=== PATIENT | female | born 1945 | race Caucasian/White ===

== ENCOUNTER 2020-05-04 11:24 | Emergency (ER) | payer MEDICARE, MEDICAID ==
[~2020-05-04] VITALS: Ht 134.6 cm; Wt 37.6 kg
[2020-05-04] MEDS ORDERED: MORPHINE SULF INJ 2 MG/ML SYRINGE 1ML IV ONE (11:45)
[2020-05-04] MEDS ORDERED: ONDANSETRON HCL 4 MG/2 ML VIAL IV ONE (11:45)
[2020-05-04 11:58] LABS: Basophils # (auto) 0 10 ^3/uL (0-0.2); Basophils % (auto) 0.4 % (0.0-2.0); Eosinophils # (auto) 0 10 ^3/uL (0-0.8); Eosinophils % (auto) 0.6 % (0.0-7.0); Hematocrit 40.7 % (36.0-46.0); Hemoglobin 13.4 g/dL (12.2-16.2); Lymphocytes # (auto) 0.5 10 ^3/uL (0.4-5.4); Lymphocytes % (auto) 7.9 % (10.0-50.0); Mean Corpuscular Hemoglobin 31.8 pg (28.0-32.0); Mean Corpuscular Volume 96.3 fL (80.0-100.0); Monocytes # (auto) 0.6 10 ^3/uL (0-1.3); Monocytes % (auto) 8.9 % (0.0-12.0); Neutrophils # (auto) 5.6 10 ^3/uL (1.6-8.6); Neutrophils % (auto) 82.2 % (37.0-80.0); Platelet Count (auto) 319 10^3/uL (140-450); Red Blood Cells 4.22 10^6/uL (4.0-5.20); Red Cell Distribution Width 14.9 % (11.8-14.3); White Blood Cell 6.8 10^3/uL (4.4-10.8)
[2020-05-04 12:28] LABS: Anion Gap 7 (5-15); Blood Urea Nitrogen 20 mg/dL (7-18); Calcium 8.6 mg/dL (8.5-10.1); Carbon Dioxide 23 mmol/L (21-32); Chloride 102 mmol/L (98-107); Glucose 108 mg/dL (74-106); Potassium 4.8 mmol/L (3.5-5.1); Sodium 132 mmol/L (136-145)
[2020-05-04 12:29] LABS: Alanine Aminotransferase 21 U/L (13-56); Aspartate Aminotransferase 18 U/L (15-37); BUN/Creatinine Ratio 40.8; GFR African American 160 mL/min; GFR Non-African American 132 mL/min; Lipase 236 U/L (73-393)
[2020-05-04 12:34] LABS: Alkaline Phosphatase 200 U/L (45-117); Bilirubin, Total 0.2 mg/dL (0.2-1.0); Total Protein 6.1 g/dL (6.4-8.2)
[2020-05-04 13:57] LABS: Urine Bacteria None Seen /hpf (None Seen); Urine WBC None Seen /hpf (0 - 5)
[2020-05-04 14:18] LABS: Urine Blood Normal /uL (Negative); Urine Specific Gravity 1.013 (1.001-1.035)
[2020-05-04 15:49] VITALS: BP 133/79
== END 2020-05-04 15:49 | disposition home or self-care (01) ==
LOC: ER 11:24 → EDBD 11:24 → ER 15:49
DX: R07.89 Other chest pain (principal); I10 Essential (primary) hypertension
CPT/HCPCS: 36415; 71250; 74176; 80053; 81001; 83690; 84484; 85025; 93005; 99285; J2270; J2405

== ENCOUNTER 2022-02-07 10:06 | Inpatient (IN) | payer MEDICARE, MEDICAID ==
[~2022-02-07] VITALS: Ht 137.2 cm; Wt 45.1 kg
[2022-02-07 12:32] LABS: Urine Bacteria NONE SEEN /hpf (None Seen); Urine Blood Negative /uL (Negative); Urine Mucus FEW (None Seen); Urine Specific Gravity 1.019 (1.001-1.035); Urine WBC 1 /hpf (0 - 5)
[2022-02-07 12:54] LABS: Basophils # (auto) 0 10 ^3/uL (0-0.2); Basophils % (auto) 0.3 % (0.0-2.0); Eosinophils # (auto) 0 10 ^3/uL (0-0.8); Eosinophils % (auto) 0.1 % (0.0-7.0); Hematocrit 40.1 % (36.0-46.0); Hemoglobin 13.5 g/dL (12.2-16.2); Lymphocytes # (auto) 0.3 10 ^3/uL (0.4-5.4); Lymphocytes % (auto) 11.6 % (10.0-50.0); Mean Corpuscular Hemoglobin 32.4 pg (28.0-32.0); Mean Corpuscular Hgb Conc. 33.7 g/dL (32.0-36.0); Mean Corpuscular Volume 96.3 fL (80.0-100.0); Monocytes # (auto) 0.2 10 ^3/uL (0-1.3); Monocytes % (auto) 10.2 % (0.0-12.0); Neutrophils # (auto) 1.7 10 ^3/uL (1.6-8.6); Neutrophils % (auto) 77.8 % (37.0-80.0); Nucleated Red Blood Cells % 0.2 %; Red Blood Cells 4.17 10^6/uL (4.0-5.20); Red Cell Distribution Width 14.3 % (11.8-14.3); White Blood Cell 2.2 10^3/uL (4.4-10.8)
[2022-02-07] MEDS ORDERED: LEVO-28 PO (12:57)
[2022-02-07 13:09] LABS: Albumin 3.2 g/dL (3.4-5.0); Calcium 7.6 mg/dL (8.5-10.1); Potassium 4.7 mmol/L (3.5-5.1)
[2022-02-07 13:15] LABS: Bilirubin, Total 0.4 mg/dL (0.2-1.0); Total Protein 5.7 g/dL (6.4-8.2)
[2022-02-07] MEDS ORDERED: SODIUM CHLORIDE 0.9% 1,000 ML IV ONE (14:15)
[2022-02-07] MEDS: SODIUM CHLORIDE 0.9% 1,000 ML IV SCH (15:45)
[2022-02-07] MEDS ORDERED: ceFAZolin 1GM/50ML 50 ML IV ONE (15:45)
[2022-02-07] MEDS ORDERED: ONDANSETRON HCL 4 MG/2 ML VIAL IV PRN (15:45)
[2022-02-07 16:25] LABS: Cholesterol 180 mg/dL (< 200); Triglycerides 45 mg/dL (< 150)
[2022-02-07 16:27] LABS: HDL Cholesterol 126 mg/dL (40-59); LDL Cholesterol 41 mg/dL (< 100)
[2022-02-07] MEDS ORDERED: ceFAZolin 1GM/50ML 50 ML IV SCH (17:50)
[2022-02-07] MEDS ORDERED: LEVO125T7 PO (17:59)
[2022-02-07] MEDS ORDERED: FUROSEMIDE 40 MG/4 ML VIAL IV ONE (18:00)
[2022-02-07 20:05] LABS: INR 1.3 (0.9-1.15)
[2022-02-07 21:43] VITALS: BP 95/69
[2022-02-07] MEDS ORDERED: AMLO-489 PO (21:51)
[2022-02-07] MEDS ORDERED: SODI1TAB2 PO (21:51)
[2022-02-07] MEDS ORDERED: CHOL500023 PO (21:51)
[2022-02-07] MEDS ORDERED: LEVO100T8 PO (21:51)
[2022-02-07] MEDS ORDERED: MULT-1018 PO (21:51)
[2022-02-07 22:09] VITALS: BP 94/55
[2022-02-08] MEDS: ceFAZolin 1GM/50ML 50 ML IV SCH ×3 (01:58→18:02)
[2022-02-08 05:15] VITALS: BP 105/59
[2022-02-08 05:40] LABS: Basophils # (auto) 0 10 ^3/uL (0-0.2); Basophils % (auto) 0.5 % (0.0-2.0); Eosinophils # (auto) 0 10 ^3/uL (0-0.8); Eosinophils % (auto) 0.4 % (0.0-7.0); Hematocrit 37.5 % (36.0-46.0); Hemoglobin 12.8 g/dL (12.2-16.2); Lymphocytes # (auto) 0.3 10 ^3/uL (0.4-5.4); Lymphocytes % (auto) 12.6 % (10.0-50.0); Mean Corpuscular Hgb Conc. 34.2 g/dL (32.0-36.0); Mean Corpuscular Volume 96.6 fL (80.0-100.0); Monocytes # (auto) 0.3 10 ^3/uL (0-1.3); Monocytes % (auto) 16.1 % (0.0-12.0); Neutrophils # (auto) 1.5 10 ^3/uL (1.6-8.6); Neutrophils % (auto) 70.4 % (37.0-80.0); Nucleated Red Blood Cells % 0.1 %; Red Blood Cells 3.88 10^6/uL (4.0-5.20); White Blood Cell 2.1 10^3/uL (4.4-10.8)
[2022-02-08 06:10] LABS: Albumin 2.7 g/dL (3.4-5.0); BUN/Creatinine Ratio 27.6; Potassium 3.8 mmol/L (3.5-5.1)
[2022-02-08 06:15] LABS: Bilirubin, Total 0.3 mg/dL (0.2-1.0)
[2022-02-08 08:41] VITALS: BP 108/64
[2022-02-08] MEDS: SODIUM CHLORIDE 0.9% 1,000 ML IV SCH ×3 (10:38→23:00)
[2022-02-08] MEDS: ENOXAPARIN SOD 30 MG/0.3 ML SYRINGE SC SCH (10:39)
[2022-02-08 12:57] VITALS: BP 105/66
[2022-02-08 17:30] VITALS: BP 125/66
[2022-02-08 20:00] VITALS: BP 108/74
[2022-02-08 21:49] VITALS: BP 108/74
[2022-02-09] VITALS (7 sets, daily range): BP systolic 108–129; BP diastolic 65–82
[2022-02-09] MEDS: ceFAZolin 1GM/50ML 50 ML IV SCH ×3 (02:14→17:48)
[2022-02-09] MEDS: LEVOTHYROXINE SODIUM 50 MCG TAB PO SCH (07:00)
[2022-02-09] MEDS: SODIUM CHLORIDE 0.9% 1,000 ML IV SCH ×2 (08:15→18:15)
[2022-02-09] MEDS: ENOXAPARIN SOD 30 MG/0.3 ML SYRINGE SC SCH (10:00)
[2022-02-10] MEDS: ceFAZolin 1GM/50ML 50 ML IV SCH ×3 (01:42→17:27)
[2022-02-10] MEDS: SODIUM CHLORIDE 0.9% 1,000 ML IV SCH ×2 (04:41→14:45)
[2022-02-10 05:00] VITALS: BP 126/76
[2022-02-10] MEDS: LEVOTHYROXINE SODIUM 50 MCG TAB PO SCH ×2 (06:36→10:45)
[2022-02-10 08:57] VITALS: BP 114/83
[2022-02-10] MEDS: ENOXAPARIN SOD 30 MG/0.3 ML SYRINGE SC SCH (10:00)
[2022-02-10 12:52] VITALS: BP 123/87
[2022-02-10 17:00] VITALS: BP 123/80
[2022-02-10 20:00] VITALS: BP 123/77
[2022-02-10 21:39] VITALS: BP 123/77
[2022-02-11] MEDS: SODIUM CHLORIDE 0.9% 1,000 ML IV SCH ×2 (00:15→10:15)
[2022-02-11] MEDS: ceFAZolin 1GM/50ML 50 ML IV SCH ×3 (02:13→18:00)
[2022-02-11 04:51] VITALS: BP 114/74
[2022-02-11] MEDS: LEVOTHYROXINE SODIUM 50 MCG TAB PO SCH (07:11)
[2022-02-11 09:00] VITALS: BP 137/85
[2022-02-11] MEDS: ENOXAPARIN SOD 30 MG/0.3 ML SYRINGE SC SCH (10:00)
[2022-02-11 12:31] VITALS: BP 124/76
[2022-02-11 16:36] VITALS: BP 122/75
[2022-02-11 22:00] VITALS: BP 120/66
[2022-02-12] MEDS: SODIUM CHLORIDE 0.9% 1,000 ML IV SCH ×2 (02:36→06:06)
[2022-02-12] MEDS: ceFAZolin 1GM/50ML 50 ML IV SCH ×2 (02:36→10:00)
[2022-02-12 05:35] VITALS: BP 114/75
[2022-02-12] MEDS: LEVOTHYROXINE SODIUM 50 MCG TAB PO SCH (06:49)
[2022-02-12 09:00] VITALS: BP 134/76
[2022-02-12] MEDS: ENOXAPARIN SOD 30 MG/0.3 ML SYRINGE SC SCH (10:00)
[2022-02-12 12:25] VITALS: BP 107/77
[2022-02-12 14:49] VITALS: BP 118/73
== END 2022-02-12 16:30 | DRG 603 ==
LOC: EDBD 10:06 → ER 10:06 → OVERFLOW 15:33 → CENTRAL 19:59
PROVIDERS: ADMIT Registered Nurse; ATTEND Family Medicine
DX: L03.115 Cellulitis of right lower limb (principal); E87.1 Hypo-osmolality and hyponatremia; E46 Unspecified protein-calorie malnutrition; L03.116 Cellulitis of left lower limb; I73.00 Raynaud's syndrome without gangrene; M41.9 Scoliosis, unspecified; E03.9 Hypothyroidism, unspecified; H53.2 Diplopia; F25.9 Schizoaffective disorder, unspecified; I10 Essential (primary) hypertension; M06.9 Rheumatoid arthritis, unspecified; Z20.822 Contact with and (suspected) exposure to COVID-19; Z82.49 Family history of ischemic heart disease and other diseases of the circulatory system
CPT/HCPCS: 36415; 51702; 70450; 71045; 73120; 80053; 80061; 81001; 83036; 83516; 83880; 84443; 84484; 85025; 85610; 85652; 86200; 86225; 86235; 86431; 87040; 87081; 87086; 93306; 93925; 93970; 93971; 96361; 96365; 96375; G0378; J0690; J2405

== ENCOUNTER 2022-02-17 09:21 | Inpatient (IN) | payer MEDICARE, MEDICAID ==
[2022-02-17] VITALS (28 sets, daily range): BP systolic 99–132; BP diastolic 55–103
[~2022-02-17] VITALS: Ht 142.2 cm; Wt 36.0 kg
[~2022-02-17 09:21] MED LIST: AMLO-489 PO; CHOL500023 PO; LEVO-28 PO; LEVO100T8 PO; LEVO125T7 PO; MULT-1018 PO; SODI1TAB2 PO
[2022-02-17] MEDS ORDERED: MIDAZOLAM DRIP 50 mg/50mL 50 ML IV ONE (09:28)
[2022-02-17] MEDS ORDERED: ETOMIDATE (2MG/ML) 20ML VIAL IV ONE ×2 (09:28→10:15)
[2022-02-17] MEDS ORDERED: SUCCINYLCHOLINE CHLORIDE 20 MG/ML 10ML VIAL IV ONE ×2 (09:28→10:15)
[2022-02-17] MEDS: MIDAZOLAM DRIP 50 mg/50mL 50 ML IV SCH ×3 (09:33→18:17)
[2022-02-17] MEDS ORDERED: NOREPINEPHRINE 8 MG/250ML KIT 250 ML IV ONE (09:49)
[2022-02-17] MEDS ORDERED: cefTRIAXone 1GM/50ML D5W 50 ML IV ONE (10:00)
[2022-02-17] MEDS ORDERED: SODIUM CHLORIDE 0.9% 1,000 ML IV ONE (10:00)
[2022-02-17] MEDS: NOREPINEPHRINE 8 MG/250ML KIT 250 ML IV SCH ×2 (10:00→23:35)
[2022-02-17 10:13] LABS: Basophils # (auto) 0 10 ^3/uL (0-0.2); Eosinophils # (auto) 0 10 ^3/uL (0-0.8); Eosinophils % (auto) 0.4 % (0.0-7.0); Hematocrit 36.9 % (36.0-46.0); Hemoglobin 12.5 g/dL (12.2-16.2); Lymphocytes # (auto) 0.1 10 ^3/uL (0.4-5.4); Lymphocytes % (auto) 3.4 % (10.0-50.0); Mean Corpuscular Hemoglobin 33.1 pg (28.0-32.0); Mean Corpuscular Hgb Conc. 33.8 g/dL (32.0-36.0); Mean Corpuscular Volume 97.9 fL (80.0-100.0); Monocytes # (auto) 0.1 10 ^3/uL (0-1.3); Monocytes % (auto) 4.3 % (0.0-12.0); Neutrophils # (auto) 2.8 10 ^3/uL (1.6-8.6); Neutrophils % (auto) 90.9 % (37.0-80.0); Nucleated Red Blood Cells % 0.1 %; Red Blood Cells 3.77 10^6/uL (4.0-5.20); Red Cell Distribution Width 14.1 % (11.8-14.3); White Blood Cell 3.1 10^3/uL (4.4-10.8)
[2022-02-17] MEDS ORDERED: SODIUM CHLORIDE 0.9% 500 ML IV ONE (10:15)
[2022-02-17 10:32] LABS: INR 1.18 (0.9-1.15); Partial Thromboplastin Time 25.6 sec (23.6-33.0)
[2022-02-17 10:47] LABS: Lactic Acid w/Reflex 2.3 mmol/L (0.4-2.0)
[2022-02-17 11:32] LABS: Albumin 2.2 g/dL (3.4-5.0); BUN/Creatinine Ratio 20.5; Bilirubin, Total 0.5 mg/dL (0.2-1.0); Total Protein 4.7 g/dL (6.4-8.2)
[2022-02-17 11:58] LABS: Urine Bacteria NONE SEEN /hpf (None Seen); Urine Blood 2+ /uL (Negative); Urine Hyaline Cast MOD /lpf (0 - 2); Urine Mucus FEW (None Seen); Urine Specific Gravity 1.009 (1.001-1.035); Urine WBC 48 /hpf (0 - 5)
[2022-02-17 12:20] LABS: Calcium 7.2 mg/dL (8.5-10.1)
[2022-02-17] MEDS ORDERED: NITROGLYCERIN 0.4 MG SL TAB SL PRN (14:00)
[2022-02-17] MEDS ORDERED: MORPHINE SULFATE INJECTION 2 MG/ML SYRG IV PRN (14:00)
[2022-02-17] MEDS ORDERED: DEXTROSE (50%) 50ML SYRG IV PRN (14:00)
[2022-02-17] MEDS ORDERED: AZITHROMYCIN 500MG/ 250ML 250 ML IV ONE (14:15)
[2022-02-17] MEDS ORDERED: NIFEdipine 10 MG CAP PO ONE (16:30)
[2022-02-17] MEDS ORDERED: D5W/LACTATED RINGERS 1,000 ML IV SCH (16:30)
[2022-02-17] MEDS ORDERED: ASPirin 81 mg TAB PO ONE (17:15)
[2022-02-17] MEDS ORDERED: CEFEPIME 1 GM in SODIUM CHL 0.9% 50 ML IV ONE (17:15)
[2022-02-17] MEDS ORDERED: ATORVASTATIN 20 MG TAB PO ONE (17:15)
[2022-02-17] MEDS ORDERED: ENOXAPARIN SOD 100 MG/1 ML SYRINGE SC ONE (17:15)
[2022-02-17] MEDS ORDERED: LORazepam 2MG/ML-1ML VIAL IV PRN (17:15)
[2022-02-17] MEDS ORDERED: DOCUSATE SOD 100 MG CAP PO PRN (17:45)
[2022-02-17] MEDS ORDERED: HYDROcodone-ACET 5/325MG TAB PO ONE (17:45)
[2022-02-17] MEDS ORDERED: BUDESONIDE (INHALATION) 0.5 MG/2 ML NEB NEB ONE (17:45)
[2022-02-17] MEDS ORDERED: FUROSEMIDE 40 MG/4 ML VIAL IV ONE (17:45)
[2022-02-17] MEDS ORDERED: LACTULOSE 20Gm/30ML SOLN PO PRN (17:45)
[2022-02-17] MEDS ORDERED: HYDROcodone-ACET 5/325MG TAB PO PRN (17:45)
[2022-02-17] MEDS ORDERED: ALBUMIN 25% 100 ML IV ONE (17:45)
[2022-02-17] MEDS ORDERED: IPRATROPIUM BROM 0.5 MG/2.5ML INH SOL NEB ONE (17:45)
[2022-02-17] MEDS ORDERED: PANTOPRAZOLE 40 MG/10 ML VIAL INJ IV ONE (17:45)
[2022-02-17] MEDS ORDERED: DexAMETHasone INJECTION 10 MG in SODIUM CHL 3% 500 ML IV SCH (18:00)
[2022-02-17] MEDS: InsuLIN REG 1unit/0.01ml Soln (100units/ml) SC SCH (18:00)
[2022-02-17] MEDS ORDERED: DexAMETHasone INJECTION 10 MG in D5W 5% 50 ML IV SCH (18:00)
[2022-02-17] MEDS: ACCU-CHEK COMFORT CURVE STRIP VI SCH (18:18)
[2022-02-17 19:01] LABS: INR 1.24 (0.9-1.15); Partial Thromboplastin Time 26.8 sec (23.6-33.0)
[2022-02-17] MEDS ORDERED: LIDOCAINE 1% (LOCAL ANESTH.) PF 5ml SDV ONE (19:02)
[2022-02-17 19:05] LABS: Magnesium 2.4 mg/dL (1.6-2.6)
[2022-02-17 19:56] LABS: Phosphorus 0.7 mg/dL (2.5-4.90)
[2022-02-17] MEDS ORDERED: SODIUM PHOSPHATES 40 MEQ in D5W 5% 250 ML IV ONE (20:00)
[2022-02-17] MEDS ORDERED: ACETAMINOPHEN 650 mg PER 20.3 mL UD GT PRN (20:00)
[2022-02-17] MEDS ORDERED: LIDOCAINE 1% HCL (LOCAL ANESTH.) INJ 20ML MDV ID ONE (20:00)
[2022-02-17] MEDS: CEFEPIME 1 GM in SODIUM CHL 0.9% 50 ML IV SCH (21:00)
[2022-02-17] MEDS: ALBUMIN 25% 50 ML IV SCH (21:00)
[2022-02-17] MEDS: NIFEdipine 10 MG CAP PO SCH (22:00)
[2022-02-17] MEDS ORDERED: ATORVASTATIN 20 MG TAB PO SCH (22:00)
[2022-02-17] MEDS: ENOXAPARIN SOD 40 MG/0.4 ML SYRINGE SC SCH (22:00)
[2022-02-17] MEDS: FUROSEMIDE 40 MG/4 ML VIAL IV SCH (22:00)
[2022-02-17] MEDS: DexAMETHasone SOD PHOS 10MG/1ML VIAL INJ IV SCH (22:00)
[2022-02-17] MEDS: IPRATROPIUM BROM 0.5 MG/2.5ML INH SOL NEB SCH (22:12)
[2022-02-18] VITALS (97 sets, daily range): BP systolic 78–152; BP diastolic 49–91
[2022-02-18] MEDS: IPRATROPIUM BROM 0.5 MG/2.5ML INH SOL NEB SCH ×4 (01:35→17:50)
[2022-02-18 04:18] LABS: Albumin 2.4 g/dL (3.4-5.0); Calcium 7.1 mg/dL (8.5-10.1); Magnesium 2.1 mg/dL (1.6-2.6); Potassium 3.8 mmol/L (3.5-5.1)
[2022-02-18 04:22] LABS: BUN/Creatinine Ratio 22.5; Bilirubin, Total 0.6 mg/dL (0.2-1.0); Phosphorus 1.5 mg/dL (2.5-4.90); Total Protein 4.8 g/dL (6.4-8.2)
[2022-02-18 04:31] LABS: CRP High Sensitivity 4.28 mg/dL (< 0.3)
[2022-02-18 04:40] LABS: Basophils # (auto) 0 10 ^3/uL (0-0.2); Basophils % (auto) 0.2 % (0.0-2.0); Eosinophils # (auto) 0 10 ^3/uL (0-0.8); Eosinophils % (auto) 0.1 % (0.0-7.0); Hemoglobin 13.3 g/dL (12.2-16.2); Lymphocytes # (auto) 0.1 10 ^3/uL (0.4-5.4); Lymphocytes % (auto) 1.2 % (10.0-50.0); Mean Corpuscular Hemoglobin 34.5 pg (28.0-32.0); Mean Corpuscular Hgb Conc. 35.8 g/dL (32.0-36.0); Mean Corpuscular Volume 96.4 fL (80.0-100.0); Monocytes # (auto) 0.2 10 ^3/uL (0-1.3); Monocytes % (auto) 2.7 % (0.0-12.0); Neutrophils # (auto) 5.9 10 ^3/uL (1.6-8.6); Neutrophils % (auto) 95.8 % (37.0-80.0); Red Blood Cells 3.84 10^6/uL (4.0-5.20); Red Cell Distribution Width 14.2 % (11.8-14.3); White Blood Cell 6.1 10^3/uL (4.4-10.8)
[2022-02-18 05:07] LABS: INR 1.25 (0.9-1.15); Partial Thromboplastin Time 29.1 sec (23.6-33.0)
[2022-02-18] MEDS: ALBUMIN 25% 50 ML IV SCH ×2 (05:20→10:13)
[2022-02-18] MEDS: CEFEPIME 1 GM in SODIUM CHL 0.9% 50 ML IV SCH ×2 (05:30→17:58)
[2022-02-18] MEDS: NIFEdipine 10 MG CAP PO SCH (06:00)
[2022-02-18] MEDS: InsuLIN REG 1unit/0.01ml Soln (100units/ml) SC SCH ×3 (06:00→11:39)
[2022-02-18] MEDS: FUROSEMIDE 40 MG/4 ML VIAL IV SCH (06:13)
[2022-02-18] MEDS: ACCU-CHEK COMFORT CURVE STRIP VI SCH ×3 (06:13→11:39)
[2022-02-18] MEDS: LEVOTHYROXINE SODIUM 50 MCG TAB PO SCH (06:14)
[2022-02-18] MEDS ORDERED: IOHEXOL 300 MG/ML 100ML BOTTLE IJ ONE (09:51)
[2022-02-18] MEDS ORDERED: THIAMINE HCL 100 MG TAB PO SCH (10:00)
[2022-02-18] MEDS ORDERED: CHOLECALCIFEROL (VITD3) 2,000 UNIT CAP/TAB PO SCH (10:00)
[2022-02-18] MEDS ORDERED: ASPirin 81 mg TAB PO SCH (10:00)
[2022-02-18] MEDS: PANTOPRAZOLE 40 MG/10 ML VIAL INJ IV SCH (10:10)
[2022-02-18] MEDS: DexAMETHasone SOD PHOS 10MG/1ML VIAL INJ IV SCH (10:10)
[2022-02-18] MEDS: ENOXAPARIN SOD 40 MG/0.4 ML SYRINGE SC SCH ×2 (10:13→22:29)
[2022-02-18] MEDS: MIDAZOLAM DRIP 50 mg/50mL 50 ML IV SCH ×3 (10:15→22:31)
[2022-02-18 12:37] LABS: Urine Bacteria NONE SEEN /hpf (None Seen); Urine Blood 1+ /uL (Negative); Urine Hyaline Cast FEW /lpf (0 - 2); Urine Specific Gravity 1.008 (1.001-1.035); Urine WBC 2 /hpf (0 - 5)
[2022-02-18 12:43] LABS: Alcohol, Urine < 3.0 mg/dL (0-10); Amphetamine Screen, Urine NEGATIVE (NEGATIVE); Barbiturate Scree,Urine NEGATIVE (NEGATIVE); Benzodiazephine Screen, Urine POSITIVE (NEGATIVE); Cannabinoid Screen, Urine NEGATIVE (NEGATIVE); Cocaine Screen, Urine NEGATIVE (NEGATIVE); Opiate Scree,Urine NEGATIVE (NEGATIVE); Phencyclidine Screen, Urine NEGATIVE (NEGATIVE); Protein, Urine 9.4 mg/dL (0.0-11.9)
[2022-02-18] MEDS: NOREPINEPHRINE 8 MG/250ML KIT 250 ML IV SCH (12:55)
[2022-02-18] MEDS ORDERED: SODIUM PHOSPHATES 40 MEQ in D5W 5% 250 ML IV ONE (15:15)
[2022-02-18] MEDS: FUROSEMIDE 20 MG/2 ML VIAL IV SCH (17:57)
[2022-02-19] VITALS (101 sets, daily range): BP systolic 76–144; BP diastolic 40–83
[2022-02-19] MEDS: IPRATROPIUM BROM 0.5 MG/2.5ML INH SOL NEB SCH ×4 (00:07→23:54)
[2022-02-19] MEDS: NOREPINEPHRINE 8 MG/250ML KIT 250 ML IV SCH ×2 (02:15→11:19)
[2022-02-19 03:35] LABS: Basophils # (auto) 0 10 ^3/uL (0-0.2); Basophils % (auto) 0.2 % (0.0-2.0); Eosinophils # (auto) 0 10 ^3/uL (0-0.8); Hematocrit 34.9 % (36.0-46.0); Hemoglobin 11.9 g/dL (12.2-16.2); Lymphocytes # (auto) 0.1 10 ^3/uL (0.4-5.4); Lymphocytes % (auto) 2.9 % (10.0-50.0); Mean Corpuscular Hemoglobin 32.9 pg (28.0-32.0); Mean Corpuscular Hgb Conc. 34.3 g/dL (32.0-36.0); Mean Corpuscular Volume 96.2 fL (80.0-100.0); Monocytes # (auto) 0.5 10 ^3/uL (0-1.3); Neutrophils # (auto) 4.3 10 ^3/uL (1.6-8.6); Neutrophils % (auto) 85.9 % (37.0-80.0); Nucleated Red Blood Cells % 0.1 %; Red Blood Cells 3.63 10^6/uL (4.0-5.20); Red Cell Distribution Width 14.4 % (11.8-14.3)
[2022-02-19 03:57] LABS: BUN/Creatinine Ratio 27.3
[2022-02-19] MEDS: MIDAZOLAM DRIP 50 mg/50mL 50 ML IV SCH ×3 (04:12→22:36)
[2022-02-19 04:52] LABS: Potassium 2.6 mmol/L (3.5-5.1)
[2022-02-19] MEDS: CEFEPIME 1 GM in SODIUM CHL 0.9% 50 ML IV SCH ×2 (05:45→16:46)
[2022-02-19 05:46] LABS: Albumin 2.5 g/dL (3.4-5.0); Phosphorus 3.8 mg/dL (2.5-4.90)
[2022-02-19] MEDS: FUROSEMIDE 20 MG/2 ML VIAL IV SCH (06:00)
[2022-02-19] MEDS: LEVOTHYROXINE SODIUM 50 MCG TAB PO SCH (07:02)
[2022-02-19] MEDS: POTASSIUM CHL 20MEQ/100ML 100 ML IV SCH ×2 (08:00→09:42)
[2022-02-19] MEDS: ENOXAPARIN SOD 40 MG/0.4 ML SYRINGE SC SCH ×2 (09:42→22:30)
[2022-02-19] MEDS: PANTOPRAZOLE 40 MG/10 ML VIAL INJ IV SCH (09:42)
[2022-02-19] MEDS ORDERED: CALCIUM GLUC 1,000mg/50ml-NS 50 ML IV ONE (11:15)
[2022-02-19] MEDS ORDERED: Jevity 1.2 Cal/Fiber 1 Liter GT SCH (11:15)
[2022-02-19] MEDS ORDERED: POTASSIUM EFFERVESENT TAB 25 MEQ GT ONE (11:15)
[2022-02-19] MEDS: fentaNYL Drip 2500mCg/250mlNS 250 ML IV SCH (11:57)
[2022-02-19 16:39] LABS: BUN/Creatinine Ratio 26.8; Calcium 6.5 mg/dL (8.5-10.1); Magnesium 2.3 mg/dL (1.6-2.6); Potassium 4.3 mmol/L (3.5-5.1)
[2022-02-20] VITALS (104 sets, daily range): BP systolic 74–188; BP diastolic 39–103
[2022-02-20 04:40] LABS: Calcium 6.4 mg/dL (8.5-10.1); Potassium 4.2 mmol/L (3.5-5.1)
[2022-02-20] MEDS: NOREPINEPHRINE 8 MG/250ML KIT 250 ML IV SCH ×2 (05:20→15:42)
[2022-02-20] MEDS: CEFEPIME 1 GM in SODIUM CHL 0.9% 50 ML IV SCH ×2 (05:25→17:09)
[2022-02-20] MEDS: IPRATROPIUM BROM 0.5 MG/2.5ML INH SOL NEB SCH ×3 (06:21→18:02)
[2022-02-20] MEDS: LEVOTHYROXINE SODIUM 50 MCG TAB PO SCH (06:30)
[2022-02-20] MEDS: ENOXAPARIN SOD 40 MG/0.4 ML SYRINGE SC SCH ×2 (09:38→21:42)
[2022-02-20] MEDS: FUROSEMIDE 20 MG/2 ML VIAL IV SCH (09:38)
[2022-02-20] MEDS: POTASSIUM EFFERVESENT TAB 25 MEQ GT SCH (09:39)
[2022-02-20] MEDS: PANTOPRAZOLE 40 MG/10 ML VIAL INJ IV SCH (09:39)
[2022-02-20] MEDS: MIDAZOLAM DRIP 50 mg/50mL 50 ML IV SCH ×2 (13:00→20:19)
[2022-02-20] MEDS: fentaNYL Drip 2500mCg/250mlNS 250 ML IV SCH (15:48)
[2022-02-21] VITALS (73 sets, daily range): BP systolic 107–172; BP diastolic 59–102
[2022-02-21] MEDS: IPRATROPIUM BROM 0.5 MG/2.5ML INH SOL NEB SCH ×5 (00:09→23:43)
[2022-02-21 03:48] LABS: Basophils # (auto) 0.1 10 ^3/uL (0-0.2); Basophils % (auto) 1.5 % (0.0-2.0); Eosinophils # (auto) 0.1 10 ^3/uL (0-0.8); Eosinophils % (auto) 1.9 % (0.0-7.0); Hematocrit 35.3 % (36.0-46.0); Hemoglobin 11.6 g/dL (12.2-16.2); Lymphocytes # (auto) 0.3 10 ^3/uL (0.4-5.4); Lymphocytes % (auto) 6.2 % (10.0-50.0); Mean Corpuscular Hemoglobin 32.3 pg (28.0-32.0); Mean Corpuscular Volume 97.9 fL (80.0-100.0); Monocytes # (auto) 0.3 10 ^3/uL (0-1.3); Neutrophils # (auto) 3.8 10 ^3/uL (1.6-8.6); Neutrophils % (auto) 84.4 % (37.0-80.0); Nucleated Red Blood Cells % 0.1 %; Red Blood Cells 3.61 10^6/uL (4.0-5.20); Red Cell Distribution Width 14.8 % (11.8-14.3); White Blood Cell 4.5 10^3/uL (4.4-10.8)
[2022-02-21 04:07] LABS: Potassium 3.9 mmol/L (3.5-5.1)
[2022-02-21 04:11] LABS: BUN/Creatinine Ratio 45.8; Calcium 6.3 mg/dL (8.5-10.1)
[2022-02-21] MEDS: NOREPINEPHRINE 8 MG/250ML KIT 250 ML IV SCH ×2 (04:34→19:30)
[2022-02-21] MEDS: CEFEPIME 1 GM in SODIUM CHL 0.9% 50 ML IV SCH (04:39)
[2022-02-21] MEDS: LEVOTHYROXINE SODIUM 50 MCG TAB PO SCH (06:48)
[2022-02-21] MEDS ORDERED: POTASSIUM CHL 20MEQ/100ML 100 ML IV ONE (09:45)
[2022-02-21] MEDS ORDERED: FUROSEMIDE 20 MG/2 ML VIAL IV ONE (09:45)
[2022-02-21] MEDS ORDERED: FUROSEMIDE 20 MG/2 ML VIAL ONE (09:45)
[2022-02-21] MEDS: POTASSIUM EFFERVESENT TAB 25 MEQ GT SCH (10:00)
[2022-02-21] MEDS: FUROSEMIDE 20 MG/2 ML VIAL IV SCH (10:00)
[2022-02-21] MEDS: ENOXAPARIN SOD 40 MG/0.4 ML SYRINGE SC SCH ×2 (14:02→21:19)
[2022-02-21] MEDS: PANTOPRAZOLE 40 MG/10 ML VIAL INJ IV SCH (14:02)
[2022-02-21] MEDS: ONDANSETRON HCL 4 MG/2 ML VIAL IV PRN (15:17)
[2022-02-21] MEDS: ERTAPENEM SOD INJ 1 GM in SODIUM CHL 0.9% 50 ML IV SCH (18:16)
[2022-02-21] MEDS: fentaNYL Drip 2500mCg/250mlNS 250 ML IV SCH (19:30)
[2022-02-21 21:30] LABS: INR 1.07 (0.9-1.15); Partial Thromboplastin Time 33.3 sec (23.6-33.0)
[2022-02-21] MEDS: MIDAZOLAM DRIP 50 mg/50mL 50 ML IV SCH (22:07)
[2022-02-22] VITALS (25 sets, daily range): BP systolic 122–179; BP diastolic 61–99
[2022-02-22 03:55] LABS: Basophils # (auto) 0 10 ^3/uL (0-0.2); Basophils % (auto) 0.1 % (0.0-2.0); Eosinophils # (auto) 0 10 ^3/uL (0-0.8); Eosinophils % (auto) 0.5 % (0.0-7.0); Hematocrit 30.6 % (36.0-46.0); Hemoglobin 10.4 g/dL (12.2-16.2); Lymphocytes # (auto) 0.2 10 ^3/uL (0.4-5.4); Lymphocytes % (auto) 7.3 % (10.0-50.0); Mean Corpuscular Hemoglobin 33.1 pg (28.0-32.0); Mean Corpuscular Hgb Conc. 34.2 g/dL (32.0-36.0); Mean Corpuscular Volume 96.9 fL (80.0-100.0); Monocytes # (auto) 0.4 10 ^3/uL (0-1.3); Monocytes % (auto) 13.2 % (0.0-12.0); Neutrophils # (auto) 2.5 10 ^3/uL (1.6-8.6); Neutrophils % (auto) 78.9 % (37.0-80.0); Nucleated Red Blood Cells % 0.1 %; Red Blood Cells 3.15 10^6/uL (4.0-5.20); Red Cell Distribution Width 14.6 % (11.8-14.3); White Blood Cell 3.2 10^3/uL (4.4-10.8)
[2022-02-22 04:14] LABS: Albumin 2.3 g/dL (3.4-5.0); Calcium 6.3 mg/dL (8.5-10.1); Potassium 3.5 mmol/L (3.5-5.1)
[2022-02-22 04:15] LABS: BUN/Creatinine Ratio 64.7
[2022-02-22 04:28] LABS: Bilirubin, Total 0.4 mg/dL (0.2-1.0); Total Protein 4.9 g/dL (6.4-8.2)
[2022-02-22] MEDS: NOREPINEPHRINE 8 MG/250ML KIT 250 ML IV SCH (05:24)
[2022-02-22] MEDS: LEVOTHYROXINE SODIUM 50 MCG TAB PO SCH (05:24)
[2022-02-22] MEDS: IPRATROPIUM BROM 0.5 MG/2.5ML INH SOL NEB SCH ×3 (06:18→18:25)
[2022-02-22] MEDS: POTASSIUM EFFERVESENT TAB 25 MEQ GT SCH (09:37)
[2022-02-22] MEDS: MIDAZOLAM DRIP 50 mg/50mL 50 ML IV SCH (10:15)
[2022-02-22] MEDS: ENOXAPARIN SOD 40 MG/0.4 ML SYRINGE SC SCH ×2 (10:29→21:43)
[2022-02-22] MEDS: PANTOPRAZOLE 40 MG/10 ML VIAL INJ IV SCH (10:29)
[2022-02-22] MEDS: FUROSEMIDE 20 MG/2 ML VIAL IV SCH (10:32)
[2022-02-22] MEDS: POTASSIUM CHL 20MEQ/100ML 100 ML IV SCH ×2 (10:42→12:57)
[2022-02-22] MEDS: fentaNYL Drip 2500mCg/250mlNS 250 ML IV SCH (11:15)
[2022-02-22] MEDS ORDERED: IOHEXOL 350 MG/ML 100ML IJ ONE (12:19)
[2022-02-22] MEDS ORDERED: hydrALAZINE HCL 20 MG/ML VL IV PRN (15:15)
[2022-02-22] MEDS: ERTAPENEM SOD INJ 1 GM in SODIUM CHL 0.9% 50 ML IV SCH (17:31)
[2022-02-23] VITALS (18 sets, daily range): BP systolic 107–180; BP diastolic 67–89
[2022-02-23] MEDS: IPRATROPIUM BROM 0.5 MG/2.5ML INH SOL NEB SCH ×4 (00:16→18:44)
[2022-02-23 06:57] LABS: Basophils # (auto) 0 10 ^3/uL (0-0.2); Basophils % (auto) 0.2 % (0.0-2.0); Eosinophils # (auto) 0 10 ^3/uL (0-0.8); Hematocrit 35.2 % (36.0-46.0); Hemoglobin 12.1 g/dL (12.2-16.2); Lymphocytes # (auto) 0.2 10 ^3/uL (0.4-5.4); Lymphocytes % (auto) 3.2 % (10.0-50.0); Mean Corpuscular Hemoglobin 33.2 pg (28.0-32.0); Mean Corpuscular Hgb Conc. 34.2 g/dL (32.0-36.0); Mean Corpuscular Volume 97.2 fL (80.0-100.0); Monocytes # (auto) 0.6 10 ^3/uL (0-1.3); Neutrophils # (auto) 4.8 10 ^3/uL (1.6-8.6); Neutrophils % (auto) 86.6 % (37.0-80.0); Red Blood Cells 3.63 10^6/uL (4.0-5.20); Red Cell Distribution Width 14.6 % (11.8-14.3); White Blood Cell 5.6 10^3/uL (4.4-10.8)
[2022-02-23] MEDS: LEVOTHYROXINE SODIUM 50 MCG TAB PO SCH ×2 (07:00→07:03)
[2022-02-23 07:15] LABS: Albumin 2.6 g/dL (3.4-5.0); Calcium 6.6 mg/dL (8.5-10.1)
[2022-02-23 07:18] LABS: Bilirubin, Total 0.6 mg/dL (0.2-1.0); Total Protein 5.5 g/dL (6.4-8.2)
[2022-02-23 07:34] LABS: Potassium 2.9 mmol/L (3.5-5.1)
[2022-02-23] MEDS: MIDAZOLAM DRIP 50 mg/50mL 50 ML IV SCH ×2 (08:05→08:07)
[2022-02-23] MEDS: NOREPINEPHRINE 8 MG/250ML KIT 250 ML IV SCH ×2 (08:06→09:06)
[2022-02-23] MEDS: POTASSIUM CHL 20MEQ/100ML 100 ML IV SCH ×2 (08:28→10:30)
[2022-02-23] MEDS: POTASSIUM EFFERVESENT TAB 25 MEQ GT SCH (08:28)
[2022-02-23] MEDS: ENOXAPARIN SOD 40 MG/0.4 ML SYRINGE SC SCH ×2 (09:08→22:00)
[2022-02-23] MEDS: PANTOPRAZOLE 40 MG/10 ML VIAL INJ IV SCH (09:08)
[2022-02-23] MEDS: FUROSEMIDE 20 MG/2 ML VIAL IV SCH (09:09)
[2022-02-23] MEDS ORDERED: amLODIPine BESYLATE 5 MG TAB PO SCH (10:00)
[2022-02-23] MEDS: fentaNYL Drip 2500mCg/250mlNS 250 ML IV SCH (11:15)
[2022-02-23] MEDS ORDERED: POTASSIUM EFFERVESENT TAB 25 MEQ GT SCH (12:45)
[2022-02-23] MEDS: CLINDAMYCIN 300MG IV 50 ML IV SCH ×2 (14:24→22:00)
[2022-02-23] MEDS: ERTAPENEM SOD INJ 1 GM in SODIUM CHL 0.9% 50 ML IV SCH (18:13)
[2022-02-24] MEDS: CLINDAMYCIN 300MG IV 50 ML IV SCH (05:10)
[2022-02-24 05:14] VITALS: BP 130/81
[2022-02-24 05:45] LABS: Potassium 3.3 mmol/L (3.5-5.1)
[2022-02-24 05:52] LABS: Albumin 2.3 g/dL (3.4-5.0); BUN/Creatinine Ratio 44.4; Bilirubin, Total 0.5 mg/dL (0.2-1.0); Calcium 6.5 mg/dL (8.5-10.1); Total Protein 4.9 g/dL (6.4-8.2)
[2022-02-24] MEDS: IPRATROPIUM BROM 0.5 MG/2.5ML INH SOL NEB SCH ×4 (06:01→18:00)
[2022-02-24] MEDS: LEVOTHYROXINE SODIUM 50 MCG TAB PO SCH (06:28)
[2022-02-24 09:00] VITALS: BP 132/77
[2022-02-24] MEDS: ENOXAPARIN SOD 40 MG/0.4 ML SYRINGE SC SCH ×3 (10:00→21:57)
[2022-02-24] MEDS ORDERED: POTASSIUM EFFERVESENT TAB 25 MEQ PO ONE (10:15)
[2022-02-24] MEDS ORDERED: POTASSIUM EFFERVESENT TAB 25 MEQ PO SCH (10:15)
[2022-02-24] MEDS: PANTOPRAZOLE 40 MG/10 ML VIAL INJ IV SCH (10:21)
[2022-02-24 13:00] VITALS: BP 125/86
[2022-02-24 17:00] VITALS: BP 104/73
[2022-02-24] MEDS: ERTAPENEM SOD INJ 1 GM in SODIUM CHL 0.9% 50 ML IV SCH (18:00)
[2022-02-24 21:33] VITALS: BP 117/78
[2022-02-25 05:00] VITALS: BP 136/85
[2022-02-25] MEDS: IPRATROPIUM BROM 0.5 MG/2.5ML INH SOL NEB SCH ×3 (06:11→13:10)
[2022-02-25] MEDS: LEVOTHYROXINE SODIUM 50 MCG TAB PO SCH (06:30)
[2022-02-25 06:32] LABS: Basophils # (auto) 0 10 ^3/uL (0-0.2); Basophils % (auto) 0.7 % (0.0-2.0); Eosinophils # (auto) 0 10 ^3/uL (0-0.8); Eosinophils % (auto) 1.3 % (0.0-7.0); Hematocrit 33.5 % (36.0-46.0); Hemoglobin 11.4 g/dL (12.2-16.2); Lymphocytes # (auto) 0.3 10 ^3/uL (0.4-5.4); Lymphocytes % (auto) 8.5 % (10.0-50.0); Mean Corpuscular Hemoglobin 33.3 pg (28.0-32.0); Mean Corpuscular Hgb Conc. 34.2 g/dL (32.0-36.0); Mean Corpuscular Volume 97.4 fL (80.0-100.0); Monocytes # (auto) 0.4 10 ^3/uL (0-1.3); Monocytes % (auto) 12.6 % (0.0-12.0); Neutrophils # (auto) 2.4 10 ^3/uL (1.6-8.6); Neutrophils % (auto) 76.9 % (37.0-80.0); Red Blood Cells 3.43 10^6/uL (4.0-5.20); Red Cell Distribution Width 14.8 % (11.8-14.3); White Blood Cell 3.1 10^3/uL (4.4-10.8)
[2022-02-25 06:56] LABS: BUN/Creatinine Ratio 38.9; Calcium 6.7 mg/dL (8.5-10.1); Potassium 3.7 mmol/L (3.5-5.1)
[2022-02-25 09:00] VITALS: BP 128/82
[2022-02-25] MEDS: ENOXAPARIN SOD 40 MG/0.4 ML SYRINGE SC SCH ×2 (10:42→22:09)
[2022-02-25] MEDS: PANTOPRAZOLE 40 MG/10 ML VIAL INJ IV SCH (10:42)
[2022-02-25 13:00] VITALS: BP 139/87
[2022-02-25 16:47] VITALS: BP 146/91
[2022-02-25] MEDS: ERTAPENEM SOD INJ 1 GM in SODIUM CHL 0.9% 50 ML IV SCH (19:27)
[2022-02-25 22:00] VITALS: BP 156/87
[2022-02-26 05:11] VITALS: BP 150/79
[2022-02-26] MEDS: LEVOTHYROXINE SODIUM 50 MCG TAB PO SCH (06:22)
[2022-02-26] MEDS: IPRATROPIUM BROM 0.5 MG/2.5ML INH SOL NEB SCH ×4 (06:44→18:22)
[2022-02-26 08:56] VITALS: BP 139/93
[2022-02-26 13:21] VITALS: BP 128/83
[2022-02-26] MEDS: APIXABAN 2.5 MG TAB PO SCH ×2 (14:00→21:26)
[2022-02-26] MEDS: PANTOPRAZOLE 40 MG TAB PO SCH (14:00)
[2022-02-26 14:58] VITALS: BP 128/83
[2022-02-26 16:45] VITALS: BP 115/87
[2022-02-26] MEDS: ERTAPENEM SOD INJ 1 GM in SODIUM CHL 0.9% 50 ML IV SCH (17:35)
[2022-02-26 22:00] VITALS: BP 134/81
[2022-02-27 05:00] VITALS: BP 114/76
[2022-02-27 05:26] LABS: Basophils # (auto) 0 10 ^3/uL (0-0.2); Basophils % (auto) 0.7 % (0.0-2.0); Eosinophils # (auto) 0.1 10 ^3/uL (0-0.8); Eosinophils % (auto) 2.5 % (0.0-7.0); Hematocrit 35.2 % (36.0-46.0); Hemoglobin 11.9 g/dL (12.2-16.2); Lymphocytes # (auto) 0.3 10 ^3/uL (0.4-5.4); Lymphocytes % (auto) 11.9 % (10.0-50.0); Mean Corpuscular Hemoglobin 32.9 pg (28.0-32.0); Mean Corpuscular Hgb Conc. 33.8 g/dL (32.0-36.0); Mean Corpuscular Volume 97.4 fL (80.0-100.0); Monocytes # (auto) 0.4 10 ^3/uL (0-1.3); Monocytes % (auto) 16.1 % (0.0-12.0); Neutrophils # (auto) 1.8 10 ^3/uL (1.6-8.6); Neutrophils % (auto) 68.8 % (37.0-80.0); Nucleated Red Blood Cells % 0.2 %; Red Blood Cells 3.62 10^6/uL (4.0-5.20); Red Cell Distribution Width 14.6 % (11.8-14.3); White Blood Cell 2.6 10^3/uL (4.4-10.8)
[2022-02-27] MEDS: IPRATROPIUM BROM 0.5 MG/2.5ML INH SOL NEB SCH ×3 (05:54→11:27)
[2022-02-27] MEDS: LEVOTHYROXINE SODIUM 50 MCG TAB PO SCH (06:13)
[2022-02-27 08:59] VITALS: BP 132/67
[2022-02-27] MEDS: PANTOPRAZOLE 40 MG TAB PO SCH (10:30)
[2022-02-27] MEDS: APIXABAN 2.5 MG TAB PO SCH (10:30)
[2022-02-27 12:31] VITALS: BP 118/86
[2022-02-27 13:13] VITALS: BP 118/88
[2022-02-27] MEDS: ONDANSETRON HCL 4 MG/2 ML VIAL IV PRN (14:42)
== END 2022-02-27 15:35 | DRG 853 ==
LOC: EDSEX 09:21 → EDBD 09:21 → ER 09:21 → TELE 13:49 → ICU WEST 15:42 → TELE-CENTR 02-23 16:45
PROVIDERS: ADMIT Hospitalist; ATTEND Internal Medicine
PROC: 06HY33Z Insertion of Infusion Device into Lower Vein, Percutaneous Approach (ICD-10-PCS; principal; 2022-02-17)
PROC: 5A1955Z Respiratory Ventilation, Greater than 96 Consecutive Hours (ICD-10-PCS; 2022-02-17)
PROC: 0BH17EZ Insertion of Endotracheal Airway into Trachea, Via Natural or Artificial Opening (ICD-10-PCS; 2022-02-17)
PROC: 05HA33Z Insertion of Infusion Device into Left Brachial Vein, Percutaneous Approach (ICD-10-PCS; 2022-02-17)
PROC: B54NZZA Ultrasonography of Left Upper Extremity Veins, Guidance (ICD-10-PCS; 2022-02-17)
PROC: 0PBB3ZX Excision of Left Clavicle, Percutaneous Approach, Diagnostic (ICD-10-PCS; 2022-02-24)
PROC: 05H933Z Insertion of Infusion Device into Right Brachial Vein, Percutaneous Approach (ICD-10-PCS; 2022-02-25)
PROC: B54MZZA Ultrasonography of Right Upper Extremity Veins, Guidance (ICD-10-PCS; 2022-02-25)
DX: A41.9 Sepsis, unspecified organism (principal); J15.5 Pneumonia due to Escherichia coli; I21.A1 Myocardial infarction type 2; E43 Unspecified severe protein-calorie malnutrition; J96.01 Acute respiratory failure with hypoxia; R65.21 Severe sepsis with septic shock; I50.41 Acute combined systolic (congestive) and diastolic (congestive) heart failure; E87.1 Hypo-osmolality and hyponatremia; I82.622 Acute embolism and thrombosis of deep veins of left upper extremity; I82.A12 Acute embolism and thrombosis of left axillary vein; I82.B12 Acute embolism and thrombosis of left subclavian vein; J44.0 Chronic obstructive pulmonary disease with (acute) lower respiratory infection; Z68.1 Body mass index [BMI] 19.9 or less, adult; Z20.822 Contact with and (suspected) exposure to COVID-19; D69.6 Thrombocytopenia, unspecified; E78.5 Hyperlipidemia, unspecified; I11.0 Hypertensive heart disease with heart failure; I73.00 Raynaud's syndrome without gangrene; M19.90 Unspecified osteoarthritis, unspecified site; E83.51 Hypocalcemia; E87.6 Hypokalemia; F20.9 Schizophrenia, unspecified; M41.9 Scoliosis, unspecified; E01.0 Iodine-deficiency related diffuse (endemic) goiter; M06.9 Rheumatoid arthritis, unspecified; D64.9 Anemia, unspecified
CPT/HCPCS: 31500; 36415; 36600; 70450; 70491; 71045; 71250; 71275; 73070; 74176; 76942; 80048; 80053; 80061; 80307; 81001; 82040; 82550; 82728; 82805; 82962; 83605; 83615; 83690; 83735; 83880; 84100; 84156; 84443; 84484; 84550; 85025; 85379; 85610; 85652; 85730; 86141; 87040; 87070; 87077; 87081; 87086; 87186; 87205; 92610; 93005; 93925; 93970; 93971; 94002; 94003; 94640; 96365; 96367; 97110; 97116; 97530; 99152; 99291; C9113; G0378; J0330; J0696; J1100; J1335; J2001; J2250; J2405; J3480; J3490; J7060